=== PATIENT | female | born 1975 | race American Indian/Alaskan Native ===

== ENCOUNTER 2017-03-24 19:11 | Emergency (ER) | payer SELFPAY ==
[2017-03-24] MEDS ORDERED: PROVENTIL IH ONE (20:56)
--- NOTE | 2017-03-24 20:58 | Emergency Department Report ---
ED General Adult HPI - General Chief complaint: Upper Respiratory Infection Stated complaint: HBP Time Seen by Provider: 03/24/17 20:25 Source: patient, RN notes reviewed Mode of arrival: Ambulatory Limitations: No Limitations - History of Present Illness Initial comments: This is a 41-year-old female. She is previously unknown to me. She does have a primary care doctor, but reports not seen him for over a year. The patient does have a medical history of hypertension, and has been off of her HCTZ for the past 18 months. The patient Presented to an urgent care center today for cough, congestion, mucus production , and vaginal discharge. She denies severe headache, neck pain, chest pain, severe shortness of breath. She was found to be hypertensive, and essentially the ER for further evaluation and management. -: Gradual Location: face, mouth, genitals Quality: other (the cough is essentially painless. The vaginal discharge as slightly burning in nature.) Consistency: other (as per history of present illness) Improves with: none Worsens with: none Associated Symptoms: cough, other (vaginal discharge) - Related Data Previous Rx's Medication Instructions Recorded Last Taken Type Albuterol Sulfate [Proair 90 mcg IH Q4HR PRN #2 aer.pow.ba 03/24/17 Unknown Rx Respiclick] Benzonatate [Tessalon Perles] 100 mg PO Q8HR PRN #30 capsule 03/24/17 Unknown Rx Fluticasone [Flonase] 1 spray NS QDAY #1 bottle 03/24/17 Unknown Rx amLODIPine [Norvasc] 5 mg PO DAILY #30 tab 03/24/17 Unknown Rx metroNIDAZOLE 0.75% [Vandazole 5 gram VG QHS #1 tube 03/24/17 Unknown Rx 0.75% VAGINAL] Allergies Allergy/AdvReac Type Severity Reaction Status Date / Time metoclopramide HCl Allergy Unknown Verified 03/24/17 19:43 [From [facility]] ED Review of Systems ROS: Stated complaint: HBP Other details as noted in HPI Constitutional: denies: fever, malaise Eyes: denies: eye discharge ENT: congestion Respiratory: cough Cardiovascular: denies: chest pain Gastrointestinal: denies: abdominal pain Genitourinary: discharge Musculoskeletal: as per HPI Skin: as per HPI Neurological: as per HPI. denies: headache Psychiatric: as per HPI ED Past Medical Hx - Past Medical History Previous Medical History?: Yes Hx Hypertension: Yes - Surgical History Past Surgical History?: No - Social History Smoking Status: Never Smoker - Medications Home Medications: Home Medications Medication Instructions Recorded Confirmed Last Taken Type Albuterol Sulfate [Proair 90 mcg IH Q4HR PRN #2 aer.pow.ba 03/24/17 Unknown Rx Respiclick] Benzonatate [Tessalon Perles] 100 mg PO Q8HR PRN #30 capsule 03/24/17 Unknown Rx Fluticasone [Flonase] 1 spray NS QDAY #1 bottle 03/24/17 Unknown Rx amLODIPine [Norvasc] 5 mg PO DAILY #30 tab 03/24/17 Unknown Rx metroNIDAZOLE 0.75% [Vandazole 5 gram VG QHS #1 tube 03/24/17 Unknown Rx 0.75% VAGINAL] ED Physical Exam - General Limitations: No Limitations General appearance: alert, in no apparent distress - Head Head exam: Present: atraumatic, normocephalic - Eye Eye exam: Present: normal appearance, EOMI. Absent: nystagmus - ENT ENT exam: Present: normal exam, normal orophraynx, mucous membranes moist, TM's normal bilaterally, normal external ear exam - Neck Neck exam: Present: normal inspection, full ROM. Absent: tenderness, meningismus - Respiratory Respiratory exam: Present: normal lung sounds bilaterally. Absent: respiratory distress, wheezes, rales, rhonchi, stridor, chest wall tenderness, accessory muscle use, decreased breath sounds, prolonged expiratory - Cardiovascular Cardiovascular Exam: Present: regular rate, normal rhythm, normal heart sounds. Absent: bradycardia, tachycardia, irregular rhythm, systolic murmur, diastolic murmur, rubs, gallop - GI/Abdominal GI/Abdominal exam: Present: soft, normal bowel sounds. Absent: distended, tenderness, guarding, rebound, rigid, pulsatile mass - External exam: Present: normal external exam Speculum exam: Present: normal speculum exam, vaginal discharge Bi-manual exam: Present: normal bi-manual exam, other (escorted by nurse Yuni Hayward). Absent: cervical motion tendernes, adnexal tenderness, adnexal mass, uterine tenderness - Extremities Exam Extremities exam: Present: normal inspection, full ROM, normal capillary refill. Absent: tenderness, pedal edema, joint swelling, calf tenderness - Back Exam Back exam: Present: normal inspection, full ROM. Absent: tenderness, CVA tenderness (R), CVA tenderness (L), muscle spasm, paraspinal tenderness, vertebral tenderness - Neurological Exam Neurological exam: Present: alert, oriented X3, normal gait, other (Extraocular movements intact. Tongue midline. No facial droop. Facial sensation intact to light touch in the V1, V2, V3 distribution bilaterally. 5 and 5 strength in 4 extremities.. Sensation is intact to light touch in 4 extremities.). Absent : motor sensory deficit - Psychiatric Psychiatric exam: Present: normal affect, normal mood - Skin Skin exam: Present: warm, dry, intact, normal color. Absent: rash ED Course Vital Signs 03/24/17 03/24/17 03/24/17 19:37 19:41 20:12 Temperature 98.6 F Pulse Rate 66 68 Respiratory 20 Rate Blood Pressure 230/139 Blood Pressure 213/125 [Left] O2 Sat by Pulse 100 100 Oximetry 03/24/17 03/24/17 03/24/17 20:20 20:21 20:30 Temperature Pulse Rate Respiratory 16 Rate Blood Pressure 199/115 194/110 Blood Pressure [Left] O2 Sat by Pulse 99 99 100 Oximetry 03/24/17 03/24/17 03/24/17 20:40 20:50 21:00 Temperature Pulse Rate Respiratory Rate Blood Pressure 194/110 194/110 195/116 Blood Pressure [Left] O2 Sat by Pulse 100 99 100 Oximetry 03/24/17 03/24/17 21:10 21:20 Temperature Pulse Rate Respiratory Rate Blood Pressure 195/116 195/116 Blood Pressure [Left] O2 Sat by Pulse 100 100 Oximetry - Reevaluation(s) Reevaluation #1: 03/24/17 21:29 Differential diagnosis: Poorly controlled hypertension, vaginitis, urinary tract infection, bronchitis, viral syndrome Assessment and plan: 41-year-old female with probable cough/bronchitis/upper respiratory tract process. The patient is afebrile with reassuring vital signs with the exception of asymptomatic hypertension. I had an extensive discussion with the patient. The patient was counseled on the need to follow up with an outpatient primary care doctor for her elevated blood pressure. She specifically informed about the risks of old controlled long-term hypertension, including stroke, disability, paralysis, loss of quality of life. I offered to initiate the patient on a low-dose blood pressure medication here, but she declined, and wants to follow up with her primary care doctor for this. I did send some screening labs to facilitate the patient's follow up with an outpatient primary care doctor at her request. She is found to be not . Urinalysis is not consistent with UTI, her physical exam does not suggest pneumonia, and the patient declines an x-ray at a concern for radiation and cancer risk. I think that this is reasonable. The patient will be discharged with cough medication, Flonase, metronidazole for presumed bacterial vaginosis. Return precautions are excessively reviewed. as per the [facility] clinical policy on asymptomatic hypertension 1. Are ED blood pressure readings accurate and reliable for screening asymptomatic patients for hypertension? Level A recommendations. None specified. Level B recommendations. If blood pressure measurements are persistently elevated with a systolic blood pressure greater than 140 mm Hg or diastolic blood pressure greater than 90 mm Hg, the patient should be referred for follow- up of possible hypertension and blood pressure management. Level C recommendations. Patients with a single elevated blood pressure reading may require further screening for hypertension in the outpatient setting. 2. Do asymptomatic patients with elevated blood pressures benefit from rapid lowering of their blood pressure? Level A recommendations. None specified. Level B recommendations. (1) Initiating treatment for asymptomatic hypertension in the ED is not necessary when patients have follow-up; (2) Rapidly lowering blood pressure in asymptomatic patients in the ED is unnecessary and may be harmful in some patients; (3) When ED treatment for asymptomatic hypertension is initiated, blood pressure management should attempt to gradually lower blood pressure and should not be expected to be normalized during the initial ED visit. Reevaluation #2: 03/24/17 22:11 Patient changed her mind, she indicates that she would like some antihypertensive medication. ED Medical Decision Making - Lab Data Result diagrams: 03/24/17 21:04 03/24/17 21:04 Vital Signs 03/24/17 03/24/17 03/24/17 19:37 19:41 20:12 Temperature 98.6 F Pulse Rate 66 68 Respiratory 20 Rate Blood Pressure 230/139 Blood Pressure 213/125 [Left] O2 Sat by Pulse 100 100 Oximetry 03/24/17 03/24/17 03/24/17 20:20 20:21 20:30 Temperature Pulse Rate Respiratory 16 Rate Blood Pressure 199/115 194/110 Blood Pressure [Left] O2 Sat by Pulse 99 99 100 Oximetry 03/24/17 03/24/17 03/24/17 20:40 20:50 21:00 Temperature Pulse Rate Respiratory Rate Blood Pressure 194/110 194/110 195/116 Blood Pressure [Left] O2 Sat by Pulse 100 99 100 Oximetry Labs 03/24/17 03/24/17 03/24/17 20:30 21:04 21:04 WBC 7.1 RBC 4.48 Hgb 12.4 Hct 38.2 MCV 85 MCH 28 MCHC 32 RDW 17.3 H Plt Count 290 Hemoglobin A1c 6.2 H Urine Color Straw Urine Turbidity Clear Urine pH 6.0 Ur Specific [place] 1.006 Urine Protein <15 mg/dl Urine Glucose (UA) Neg Urine Ketones Neg Urine Blood Sm Urine Nitrite Neg Ur Reducing Substances Not Reportable Urine Bilirubin Neg Urine Ictotest Not Reportable Urine Urobilinogen < 2.0 Ur Leukocyte Esterase Lg Urine WBC (Auto) 2.0 Urine RBC (Auto) 7.0 U Epithel Cells (Auto) 4.0 Urine Mucus Few Urine HCG, Qual Negative - EKG Data -: EKG Interpreted by Me EKG shows normal: sinus rhythm, axis, intervals, QRS complexes, ST-T waves - EKG Data When compared to previous EKG there are: previous EKG unavailable Critical care attestation.: If time is entered above; I have spent that time in minutes in the direct care of this critically ill patient, excluding procedure time. ED Disposition Clinical Impression: Elevated blood pressure reading, Cough, Vaginitis Disposition: DC-01 TO HOME OR SELFCARE Is pt being admited?: No Does the pt Need Aspirin: No Condition: Stable Additional Instructions: Take the metronidazole vaginal gel as needed for the next 5 days. Wet prep demonstrated/suggested bacterial vaginosis. Do not consume alcohol for the next week. Cultures was sent today. Outpatient screening blood tests were sent today. Have a primary care doctor contact the medical records department to obtain all of these results. Please note that blood pressure is elevated in the ER. This needs to be followed up by her primary care doctor within the next 7-10 days. Long-term complications of hypertension/elevated blood pressure includes stroke, heart attack, disability, , paralysis, loss of quality of life. Return to the ER right away with fevers, chills, chest pain, shortness of breath , intractable nausea or vomiting, inability to tolerate liquid feeds, confusion. Prescriptions: metroNIDAZOLE 0.75% [Vandazole 0.75% VAGINAL] 5 gram VG QHS #1 tube Albuterol Sulfate [Proair Respiclick] 90 mcg IH Q4HR PRN #2 aer.pow.ba PRN Reason: Wheezing amLODIPine [Norvasc] 5 mg PO DAILY #30 tab Benzonatate [Tessalon Perles] 100 mg PO Q8HR PRN #30 capsule PRN Reason: Cough Fluticasone [Flonase] 1 spray NS QDAY #1 bottle Referrals: PRIMARY CARE, [Primary Care Provider] - 3-5 Days RITA MULLINS MD [Staff Physician] - 3-5 Days [facility] [Provider Group] - 3-5 Days [facility] [Provider Group] - 3-5 Days
[2017-03-24 21:13] VITALS: BP 195/116
[2017-03-24 21:17] LABS: Bilirubin,Urine NEG (Negative); Blood,Urine SM (Negative); Ketones,Urine NEG (Negative); Leukocyte Esterase,Urine LG (Negative); Mucus,Urine FEW /HPF; Nitrite,Urine NEG (Negative); Protein,Urine <15 mg/dL mg/dL (Negative); Urobilinogen,Urine < 2.0 mg/dL (<2.0)
[2017-03-24 21:22] LABS: Hematocrit 38.2 % (30.3-42.9); Hemoglobin 12.4 gm/dl (10.1-14.3); Mean Corpuscular HGB Conc 32 % (30-34); Mean Corpuscular Hemoglobin 28 pg (28-32); Mean Corpuscular Volume 85 fl (79-97); Platelet Count 290 K/mm3 (140-440); Red Blood Count 4.48 M/mm3 (3.65-5.03); Red Cell Distribution Width 17.3 % (13.2-15.2); White Blood Count 7.1 K/mm3 (4.5-11.0)
[2017-03-24 21:40] LABS: Anion Gap 17 mmol/L; Blood Urea Nitrogen 9 mg/dL (7-17); Carbon Dioxide 24 mmol/L (22-30); Chloride 102.4 mmol/L (98-107); Cholesterol 124 mg/dL (50-199); Glucose 88 mg/dL (65-100); HDL Cholesterol 58 mg/dL (40-59); LDL Cholesterol,Direct 54 mg/dL (50-130); Potassium 3.6 mmol/L (3.6-5.0); Sodium 140 mmol/L (137-145); Triglycerides 64 mg/dL (2-149)
== END 2017-03-24 22:18 | disposition home or self-care (01) ==
LOC: ED 19:11
DX: I10 Essential (primary) hypertension (principal); N76.0 Acute vaginitis; R05 Cough; R09.81 Nasal congestion; Z88.8 Allergy status to other drugs, medicaments and biological substances
CPT/HCPCS: 36415; 80048; 80061; 81001; 81025; 83036; 84443; 85027; 87210; 87591; 93005; 93010